=== PATIENT | female | born 1985 | race Two or more races ===

== ENCOUNTER → 2017-08-02 | Outpatient (CLI) | payer OTHER | LOC: CIMAGING 12:50 | PROVIDERS: ATTEND Nurse Practitioner | DX: N83.291 Other ovarian cyst, right side (principal); Z90.710 Acquired absence of both cervix and uterus; Z90.721 Acquired absence of ovaries, unilateral | CPT/HCPCS: 76856-PO ==

== ENCOUNTER 2018-06-20 19:40 | Emergency (ER) | payer OTHER ==
[2018-06-20 19:49] VITALS: BP 132/92
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
== END 2018-06-20 20:25 | disposition home or self-care (01) ==
DX: S16.1XXA Strain of muscle, fascia and tendon at neck level, initial encounter (principal); V49.50XA Passenger injured in collision with unspecified motor vehicles in traffic accident, initial encounter; Y92.410 Unspecified street and highway as the place of occurrence of the external cause

== ENCOUNTER 2018-07-14 19:26 | Emergency (ER) | payer OTHER ==
[2018-07-14] MEDS ORDERED: ONDANSETRON 4 MG/2 ML VIAL IVP ONE (20:38)
[2018-07-14] MEDS ORDERED: fentaNYL 100 MCG/2 ML INJ IVP ONE ×2 (20:38→20:42)
[2018-07-14] MEDS ORDERED: NS 1,000 ML IV ONE (20:38)
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
[2018-07-14 20:52] LABS: PLATELET COUNT 233 10^3/uL (150-400)
[2018-07-14 21:01] VITALS: BP 139/94
[2018-07-14] MEDS ORDERED: methylPREDNISolone SOD SUCC 125 MG/2 ML VIAL IVP ONE (21:13)
[2018-07-14] MEDS ORDERED: ONDANSETRON 4MG PREPACK#2 BTL TAKEHOME ONE (21:55)
== END 2018-07-14 21:59 | disposition home or self-care (01) ==
DX: R51 Headache (principal); E87.6 Hypokalemia; E86.9 Volume depletion, unspecified
CPT/HCPCS: 96374; J2405; J2930; J3010